=== PATIENT | male | born 1985 | race Caucasian/White ===

== ENCOUNTER → 2019-02-14 08:21 | Outpatient (CLI) | payer OTHER, SELFPAY ==
[2019-02-14 10:50] LABS: Anion Gap 6 (5-15); BUN 15 mg/dL (7-18); BUN/Creat Ratio 15.2 RATIO (10-20); Calcium,Total 8.7 mg/dL (8.5-10.1); Chloride 107 mmol/L (98-107); Cholesterol 171 mg/dL (200); Creatinine, Serum 0.99 mg/dL (0.70-1.30); EST Glomerular Filtration Rate 92 mL/min (>60); Est Glom Filt Rate - Afr Amer 111 mL/min (>60); Glucose 81 mg/dL (74-106); High Density Lipoprotein 50 mg/dL; Sodium Level 141 mmol/L (136-145); Triglycerides 62 mg/dL; Very Low Density Lipoprotein 12 mg/dL (5-40)
== END ==
PROVIDERS: Family Provider Family Medicine; PCP Family Medicine; Visit Provider Nurse Practitioner Family
DX: Z00.00 Encounter for general adult medical examination without abnormal findings (principal)
CPT/HCPCS: 36415; 80048; 80061

== ENCOUNTER → 2019-03-26 08:49 | Outpatient (CLI) | payer OTHER, SELFPAY ==
[2019-03-26 08:40] VITALS: BMI 19.5
--- NOTE | 2019-03-26 08:50 | RAD_ITS ---
STUDY: X-RAY - LEFT WRIST REASON FOR EXAM: Cyst/bump at the anterior base of thumb. TECHNIQUE: 3 view(s) of the wrist were obtained. COMPARISON: None. FINDINGS: Normal visualized distal radius and ulna. Normal radiocarpal articulation. Normal distal radioulnar articulation. Normal carpal bones. Normal carpal articulations. Normal carpometacarpal articulation of the thumb. Normal second through fifth carpometacarpal articulations. Normal visualized metacarpal bones. The soft tissue structures are unremarkable. RAD/Wrist min 3 Views IMPRESSION: Normal x-ray examination of the left wrist. Electronically Signed: Mario Lawson MD at 9:15 EST Tel , Service support ,
== END ==
PROVIDERS: PCP Family Medicine; Referring Provider Orthopaedic Surgery; Visit Provider Orthopaedic Surgery
DX: R22.32 Localized swelling, mass and lump, left upper limb (principal)
CPT/HCPCS: 73110

== ENCOUNTER → 2019-03-29 15:46 | Outpatient (CLI) | payer OTHER, SELFPAY ==
[2019-03-26 08:40] VITALS: BMI 19.5
--- NOTE | 2019-03-29 15:47 | US_ITS ---
STUDY: SUPERFICIAL ULTRASOUND - LEFT WRIST REASON FOR EXAM: Male, 34 years old. LT LAT WRIST LUMP TECHNIQUE: A superficial ultrasound was performed with real-time and static frank-scale imaging. COMPARISON: None. FINDINGS: 2 x 4 mm anechoic cyst approximately 1.1 mm below the skin surface appears to be adjacent to the joint. US/Ext Non Vasc Limited/Soft Tiss IMPRESSION: 2 x 4 mm probable ganglion cyst. No solid masses. Electronically Signed: Nixon Dior MD ([place]) at 13:20 EST , Service support ,
== END ==
PROVIDERS: PCP Family Medicine; Referring Provider Orthopaedic Surgery; Visit Provider Orthopaedic Surgery
DX: R22.32 Localized swelling, mass and lump, left upper limb (principal)
CPT/HCPCS: 76882

== ENCOUNTER → 2019-04-29 10:27 | Outpatient (CLI) | payer OTHER, SELFPAY ==
[2019-03-26 08:40] VITALS: BMI 19.5
--- NOTE | 2019-04-29 10:27 | MRI_ITS ---
STUDY: MRI LEFT WRIST WITHOUT CONTRAST REASON FOR EXAM: Male, 34 years old. Left wrist pain, lump radial/ hess area TECHNIQUE: Standardized fat and water weighted pulse sequences were obtained in all 3 orthogonal planes. COMPARISON: None. FINDINGS: Normal visualized distal radius and ulna. Normal distal radioulnar Articulation (DRUJ). Normal triangular fibrocartilaginous complex (TFCC). Normal carpal bones. Normal radiocarpal, intercarpal and midcarpal articulations. There is a joint effusion of the metacarpal articulation with mild dorsal capsular distention (coronal STIR series 4, is 13; sagittal T2 series 7, image 13). There is a joint effusion of the pisotriquetral articulation with capsular prolapse. Normal visualized interosseous scapholunate ligament. Normal visualized dorsal (extrinsic) ligaments. There is minimal ligamentous hypertrophy with scarring of the radioscaphocapitate extrinsic wrist ligaments arising at its radial origin (sagittal series 7, image 9; coronal STIR series 4, image 8; coronal T1 series 3, image 8). There is no demonstrated solid, cystic, or lipomatous mass in the radial palmar aspect of the wrist. Normal extensor tendons. Normal flexor tendons. Normal carpal tunnel with a normal median nerve. Normal carpometacarpal articulation of the thumb. Normal second through fifth carpometacarpal articulations. Normal visualized metacarpal bones. MRI/Upper Ext Joint Only(Routine) IMPRESSION: 1. No demonstrated solid, cystic or lipomatous mass in the region of the radial palmar aspect of the wrist. 2. Ligamentous hypertrophy with scarring of the origin the radioscaphocapitate extrinsic wrist ligaments at its radial origin. 3. Joint effusion of the midcarpal articulations with dorsal capsular prolapse. 4. Joint effusion of the pisotriquetral articulation with capsular distention. Electronically Signed: Joe Vick DO at 13:31 EDT Tel , Service support ,
== END ==
PROVIDERS: PCP Family Medicine; Referring Provider Orthopaedic Surgery; Visit Provider Orthopaedic Surgery
DX: M67.432 Ganglion, left wrist (principal)
CPT/HCPCS: 73221

== ENCOUNTER → 2023-04-28 | Outpatient (CLI) | payer OTHER, SELFPAY ==
[2023-04-28 10:00] LABS: Absolute Lymphocyte Count 1.11 X10^3/uL (0.83-4.51); Absolute Neutrophil Count 1.5 X10^3/uL (2.0-7.7); Basophil# 0.02 X10^3/uL; Basophil% 0.6 % (0-1); Eosinophil# 0.04 X10^3/uL; Eosinophils% 1.3 % (0-5); Hematocrit 40.9 % (40-54); Hemoglobin 13.6 g/dL (13.0-16.5); Lymphocyte # 1.11 X10^3/ul (0.83-4.51); Lymphocyte % 35.1 % (19-41); Mean Corp Hgb Conc 33.3 g/dL (32-36); Mean Corpuscular Hgb 30.6 pg (27.0-32.0); Mean Corpuscular Volume 91.9 fL (80-94); Mean Platelet Vol. 10.1 fl (6.2-12.0); Monocyte# 0.48 X10^3/uL; Monocyte% 15.2 % (0-10); NRBC Flagged by Analyzer 0 % (0-5); Neutrophil # 1.51 X10^3/uL (2.7-7.7); Neutrophil % 47.8 % (47-70); Platelet Count 175 K/mm3 (150-450); RBC Distribution Width CV 12.5 % (11.6-14.6); RBC Distribution Width SD 42.2 fl (35.1-43.9); Red Blood Count 4.45 M/mm3 (4.6-6.2); White Blood Count 3.2 K/mm3 (4.4-11.0)
[2023-04-28 10:51] LABS: AST(SGOT) 28 U/L (15-37); Alanine Aminotransfer ALT/SGPT 25 U/L (16-61); Alkaline Phosphatase 66 U/L (45-117); Anion Gap 3 (5-15); BUN 16 mg/dL (7-18); BUN/Creat Ratio 15.8 RATIO (10-20); Calcium,Total 9.4 mg/dL (8.5-10.1); Chloride 105 mmol/L (98-107); Cholesterol 184 mg/dL (200); Creatinine, Serum 1.01 mg/dL (0.70-1.30); EST Glomerular Filtration Rate 87 mL/min (>60); Est Glom Filt Rate - Afr Amer 106 mL/min (>60); Globulin 3.9 g/dL (2.2-4.2); Glucose 88 mg/dL (74-106); High Density Lipoprotein 58 mg/dL; Potassium 4.4 mmol/L (3.5-5.1); Protein, Total 7.9 g/dL (6.4-8.2); Sodium Level 139 mmol/L (136-145); Thyroid Stim Hormone (TSH) 1.05 uIU/mL (0.358-3.74); Triglycerides 68 mg/dL; Very Low Density Lipoprotein 14 mg/dL (5-40)
== END | disposition home or self-care (01) ==
LOC: MFPLAB 08:35
PROVIDERS: PCP Family Medicine; Visit Provider Family Medicine
DX: Z00.00 Encounter for general adult medical examination without abnormal findings (principal)
CPT/HCPCS: 36415; 80053; 80061; 84443; 85025

== ENCOUNTER → 2023-05-19 | Outpatient (CLI) | payer OTHER, SELFPAY ==
[2023-05-19 16:04] LABS: AST(SGOT) 23 U/L (15-37); Alanine Aminotransfer ALT/SGPT 27 U/L (16-61); Albumin, Serum 4.2 g/dL (3.2-5.0); Alkaline Phosphatase 67 U/L (45-117); Bilirubin, Direct 0.31 mg/dL (0.00-0.30); Protein, Total 8.2 g/dL (6.4-8.2)
== END | disposition home or self-care (01) ==
LOC: MTLAB 11:25
PROVIDERS: PCP Family Medicine; Referring Provider Family Medicine; Visit Provider Family Medicine
DX: R17 Unspecified jaundice (principal)
CPT/HCPCS: 36415; 80076

== ENCOUNTER → 2024-03-14 | Outpatient (CLI) | payer OTHER, SELFPAY ==
--- NOTE | 2024-03-14 09:42 | RAD_ITS ---
EXAM: XR ABDOMEN, 2 VIEWS AND XR CHEST, 1 VIEW CLINICAL INDICATION: PAIN TECHNIQUE: Frontal view of the chest, frontal view of the abdomen/pelvis and upright or decubitus view of the abdomen. COMPARISON: Chest radiograph, 02/06/2017 FINDINGS: CHEST: LUNGS AND PLEURAL SPACES: No significant abnormality. No consolidation or edema. No pneumothorax. No effusion. HEART: No significant abnormality. Cardiac silhouette not enlarged. MEDIASTINUM: Central airways and mediastinal contour are unremarkable. ABDOMEN: INTRAPERITONEAL SPACE: No free air. GASTROINTESTINAL TRACT: No significant abnormality. Non-obstructive. No bowel or stomach distention. ORGANS: Normal as visualized. No organomegaly. No abnormal calcifications. TUBES, LINES AND DEVICES: None. BONES/JOINTS: Serafina right lumbar spine curvature. SOFT TISSUES: No significant findings. RAD/Acute Abdomen Inc Chest IMPRESSION: 1. No acute pathology in the chest. 2. No acute pathology in the abdomen or pelvis. Electronically Signed: Collin Marcum DO at 20:26 EST ,
[2024-03-14 12:27] LABS: AST(SGOT) 27 U/L (15-37); Alanine Aminotransfer ALT/SGPT 31 U/L (16-61); Albumin, Serum 4.1 g/dL (3.2-5.0); Alkaline Phosphatase 73 U/L (45-117); Anion Gap 4 (5-15); BUN 16 mg/dL (7-18); BUN/Creat Ratio 17.6 RATIO (10-20); Calcium,Total 9.4 mg/dL (8.5-10.1); Chloride 104 mmol/L (98-107); Creatinine, Serum 0.91 mg/dL (0.70-1.30); EST Glomerular Filtration Rate 98 mL/min (>60); Est Glom Filt Rate - Afr Amer 119 mL/min (>60); Globulin 4.2 g/dL (2.2-4.2); Glucose 91 mg/dL (74-106); Lipase 31 U/L (13-75); Potassium 4.1 mmol/L (3.5-5.1); Protein, Total 8.3 g/dL (6.4-8.2); Sodium Level 138 mmol/L (136-145)
[2024-03-14 12:35] LABS: Hematocrit 41.2 % (40-54); Hemoglobin 13.7 g/dL (13.0-16.5); Mean Corp Hgb Conc 33.3 g/dL (32-36); Mean Corpuscular Volume 90.2 fL (80-94); Mean Platelet Vol. 10.2 fl (6.2-12.0); Platelet Count 196 K/mm3 (150-450); RBC Distribution Width CV 12.7 % (11.6-14.6); RBC Distribution Width SD 41.5 fl (35.1-43.9); Red Blood Count 4.57 M/mm3 (4.6-6.2); White Blood Count 3.7 K/mm3 (4.4-11.0)
== END | disposition home or self-care (01) ==
PROVIDERS: PCP Family Medicine
DX: R10.12 Left upper quadrant pain (principal)
CPT/HCPCS: 36415; 74022; 80053; 83690; 85027

== ENCOUNTER 2024-04-29 07:45 | Day surgery (SDC) | payer OTHER, SELFPAY ==
[2024-04-29] VITALS (7 sets, daily range): BP systolic 98–105; BP diastolic 63–84; PULSE 65–87; RESP 14–20; TEMP 36.2–36.7; O2SAT 97–99; BMI 20.3
--- NOTE | 2024-04-29 07:47 | PCM.PRE.AN2 ---
ASA Classification* ASA Classification ASA Classification: 2 Assessment & Plan Anesthesia* Anesthesia Assessment Anesthesia Assessment: Discussed sedation and/or anesthesia options, risks, benefits, and alternatives with patient/parents/legal guardian/POA. Questions invited. The patient/parents/legal guardian/POA seems to understand and agrees to proceed with anesthesia plan. Reviewed the physical assessment, medical history, allergy history and patient home medications list prior to surgery/procedure/anesthetic and documented any changes. Performed airway and anesthesia risk assessments. Anesthesia Type Anesthesia Type: MAC Anesthesia Focused Assessment* Airway Assessment Mouth opens: >3 cm Mallampati Score: II Focused Labs Anesthesia Preop lab: CBC WBC 3.7 K/mm3 (4.4-11.0) L 03/14/24 09:48 03/14/24 RBC 4.57 M/mm3 (4.6-6.2) L 03/14/24 09:48 03/14/24 Hgb 13.7 g/dL (13.0-16.5) 03/14/24 09:48 03/14/24 Hct 41.2 % (40-54) 03/14/24 09:48 03/14/24 Plt Count 196 K/mm3 (150-450) 03/14/24 09:48 03/14/24 CHEMISTRY Potassium 4.1 mmol/L (3.5-5.1) 03/14/24 09:48 03/14/24 Sodium 138 mmol/L (136-145) 03/14/24 09:48 03/14/24 BUN 16 mg/dL (7-18) 03/14/24 09:48 03/14/24 Creatinine 0.91 mg/dL (0.70-1.30) 03/14/24 09:48 03/14/24 Glucose 91 mg/dL (74-106) 03/14/24 09:48 03/14/24 TSH 1.05 uIU/mL (0.358-3.74) 04/28/23 08:36 04/28/23 COAG Pre-Assessment Diagnosis/Proposed Procedure Planned Operative Procedure(s): COLONOSCOPY Anesthesia History 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 When Was Last Pacemaker Check QUESTION #4 FULL TEXT: You/Your Family Experience fever (hyperthermia) with Anesthesia Last Oral Intake Last Oral intake: Last Oral Intake NPO since Meds taken in AM with sips of water? Meds patient instructed to take am of surgery PONV PONV - wax ball knock out worker: PONV - wax ball knock out worker Female No 04/26/24 11:36 HX of Motion Sickness No 04/26/24 11:36 HX of N/V After Surgery No 04/26/24 11:36 Non-Smoker Yes 04/26/24 11:36 Duration of Surgery greater No 04/26/24 11:36 than 60 minutes Number of Risk Factors 1 04/26/24 11:36 PONV Score Low Risk 04/26/24 11:36 Height & Weight Height & Weight: Anesthesia: Height & Weight Height 6 ft 1 in 03/26/19 08:40 Respiratory Assessment Respiratory Assessment - wax ball knock out worker: Respiratory Tract Infection Hx - wax ball knock out worker Hx Respiratory Tract Infection No 04/26/24 11:36 STOP Sleep Apnea STOP Sleep Apnea - wax ball knock out worker: STOP Sleep Apnea - wax ball knock out worker Hx Hypertension No 04/26/24 11:36 Hx Sleep Apnea No 04/26/24 11:36 CPAP BIPAP Do you snore loudly (louder No 04/26/24 11:36 than talking or can be heard Do you often feel tired/ No 04/26/24 11:36 fatigued/ sleepy during daytime? Has anyone observed you stop No 04/26/24 11:36 breathing during sleep? STOP Results Negative 04/26/24 11:36 QUESTION #5 FULL TEXT : Do you snore loudly (louder than talking or can be heard through closed doors)? 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 Specify any problems Hx of Preganancy in last 3 N/A 04/26/24 11:36 Months Nurse Filling Out Transfusion [facility] 04/26/24 11:36 & Questions: Date: 04/26/24 04/26/24 11:36 Time: 11:41 04/26/24 11:36 Patient unable to answer at this time (ie. confused, unrespo /Reproduction History /Reproductive History - wax ball knock out worker: /Reproductive Hx- wax ball knock out worker Hx Now Gestational Age (in weeks): EDC: Hx Hx Para Hx Section SAB PFSH Medical History Alcohol use Gastric reflux Non-smoker Home Medications ?Medication ?Instructions ?Recorded ?Last Taken ?Type finasteride 1 mg tablet 1 mg PO DAILY 04/26/24 Unknown History omeprazole 40 mg capsule,delayed 40 mg PO DAILY 04/26/24 Unknown History release Allergy/AdvReac Type Severity Reaction Status Date / Time No Known Allergies Allergy Verified 04/26/24 11:33 Surgical History History of arthroplasty of knee Social History Smoking Status: Never smoker Review of Systems (Anesthesia) ROS Narrative System reviewed and no additional complaints, except as documented.
--- NOTE | 2024-04-29 08:27 | PCM.HP.STD ---
[facility] - General General Date of Admission: 04/29/24 Date of Service: 04/29/24 Chief Complaint: Family history of colon cancer HPI Narrative OMKAR ESTRELLA, is a 39 M who presents for colonoscopy due to his father having colon cancer. Pt has a family hx of colon cancer in his father. Pt father was found to have adenocarcinoma of the colon at age 56. He underwent colon resection and has been doing well since. Pt had a brief time frame at the beginning of 2023 with abd pain in the LUQ. He had a CT abd pelvis which did not show abnormalities. No etiology was found and the pain resolved. His brother who is two years younger has had a colonoscopy with polyps. He would like to undergo colonoscopy at this time. [facility] Medical History Alcohol use Gastric reflux Non-smoker Home Medications ?Medication ?Instructions ?Recorded ?Last Taken ?Type finasteride 1 mg tablet 1 mg PO DAILY 04/26/24 Unknown History omeprazole 40 mg capsule,delayed 40 mg PO DAILY 04/26/24 Unknown History release Allergy/AdvReac Type Severity Reaction Status Date / Time No Known Allergies Allergy Verified 04/29/24 07:59 Surgical History History of arthroplasty of knee Social History Smoking Status: Never smoker ROS Constitutional Constitutional: Denies fatigue, fever(s), poor appetite, weight gain or weight loss Gastrointestinal Gastrointestinal: Denies belching, bloating, change in bowel habits, change in stool character, chewing difficulty, coffee ground emesis, constipation, cramping, diarrhea, dyspepsia, dysphagia, early satiety, excessive flatus, fecal incontinence, heartburn, hematemesis, hematochezia, hemorrhoids, loose stools, melena, nausea, odynophagia, rectal bleeding, tenesmus, vomiting or weight changes Vital Signs Vital Signs Vital Signs: 04/29/24 08:00 04/29/24 08:00 Temperature 97.1 F L Temperature Source Temporal Pulse Rate 87 Respiratory Rate 14 Respiratory Pattern Normal Blood Pressure 105/84 H Blood Pressure Mean 91 Blood Pressure Source Monitor Blood Pressure Position Sitting Blood Pressure Location Left Arm Pulse Ox 99 Oxygen Delivery Method Room Air Weight Weight: 154 lb 5.177 oz Body Mass Index (BMI) 20.3 Physical Exam Const alert, oriented x3, no apparent distress and healthy appearing General Appearance: cooperative GI normal to inspection, nondistended, normoactive bowel sounds, soft to palpation, non-tender and non-distended Percussion: normal to percussion Rectal Exam: deferred Assessment & Plan Assessment/Plan (1) Family hx of colon cancer: PLAN: Assessment and Plan Assessment and Plan (1) Family hx of colon cancer: Status: Acute Plan: This is a 39 yo male pt here today for family hx of colon cancer. Pt father was diagnosed with colon cancer at age 56 and underwent resection. In early 2023 pt was having LUQ abd pain that eventually resolved with no etiology found. His younger brother has also had polyps. Given this information, he would like to undergo colonoscopy for surveillance at this time. He will be scheduled for a colonoscopy. I did inform him that recommendation for screening starts 10 years prior to the family members cancer diagnosis but given his hx of abd pain -Colonoscopy -f/u as needed
--- NOTE | 2024-04-29 09:18 | OP.CCLET_ITS ---
04/29/2024 Eulalio Campa [address] [place] [address] Re : Colonoscopy procedure for Bill Valdes Dear Dr. Campa This procedure was performed on Monday, April 29, 2024. My impressions and recommendations are as follows: Impressions : - The entire examined colon is normal. - No specimens collected. Recommendations : - Discharge patient to home. - Resume previous diet. - Continue present medications. - Repeat colonoscopy in 5 years for screening purposes. My findings are described in the full procedure note, which is enclosed. If I can be of further assistance, please feel free to contact me at . Sincerely, Moi Day, 04/29/2024 9:18:01 AM This report has been signed electronically.
--- NOTE | 2024-04-29 09:18 | OP.COLON_ITS ---
Patient Name: Bill Valdes Procedure Date: 04/29/2024 8:53 AM Date of : 1985 Age: 39 Procedure: Colonoscopy Indications: Screening for colorectal malignant neoplasm Providers: Moi Day DO Medicines: Monitored Anesthesia Care Patient Profile: This is a 39 year old male. Refer to note in patient chart for documentation of history and physical. Last Colonoscopy: none. The patient's first colonoscopy is today. Complications: No immediate complications. Procedure: Pre-Anesthesia Assessment: - Prior to the procedure, a History and Physical was performed, and patient medications and allergies were reviewed. The patient is competent. The risks and benefits of the procedure and the sedation options and risks were discussed with the patient. All questions were answered and informed consent was obtained. Patient identification and proposed procedure were verified by the physician in the pre-procedure area. Mental Status Examination: alert and oriented. Airway Examination: normal oropharyngeal airway and neck mobility. Respiratory Examination: clear to auscultation. CV Examination: normal. Prophylactic Antibiotics: The patient does not require prophylactic antibiotics. Prior Anticoagulants: The patient has taken no anticoagulant or antiplatelet agents except for NSAID medication. ASA Grade Assessment: II - A patient with mild systemic disease. After reviewing the risks and benefits, the patient was deemed in satisfactory condition to undergo the procedure. The anesthesia plan was to use monitored anesthesia care (MAC). Immediately prior to administration of medications, the patient was re-assessed for adequacy to receive sedatives. The heart rate, respiratory rate, oxygen saturations, blood pressure, adequacy of pulmonary ventilation, and response to care were monitored throughout the procedure. The physical status of the patient was re-assessed after the procedure. After I obtained informed consent, the scope was passed under direct vision. Throughout the procedure, the patient's blood pressure, pulse, and oxygen saturations were monitored continuously. The colonoscope was introduced through the anus and advanced to the cecum, identified by appendiceal orifice and ileocecal valve. The colonoscopy was performed without difficulty. The patient tolerated the procedure well. The quality of the bowel preparation was adequate. The ileocecal valve, appendiceal orifice, and rectum were photographed. Scope In: 8:59:20 AM Scope Withdrawal Time 0 hours 7 minutes 25 seconds Scope Out: 9:12:33 AM Total Procedure Duration Time 0 hours 13 minutes 13 seconds Findings: The perianal and digital rectal examinations were normal. The colon (entire examined portion) appeared normal. Impression: - The entire examined colon is normal. - No specimens collected. Recommendation: - Discharge patient to home. - Resume previous diet. - Continue present medications. - Repeat colonoscopy in 5 years for screening purposes. Procedure Code(s): --- Professional --- G0121, Colorectal cancer screening; colonoscopy on individual not meeting criteria for high risk CPT copyright 2021 [employer]. All rights reserved. The codes documented in this report are preliminary and upon hand molder meat review may be revised to meet current compliance requirements. Moi Day DO 04/29/2024 9:18:01 AM This report has been signed electronically. Number of Addenda: 0 Note Initiated On: 04/29/2024 8:53 AM
--- NOTE | 2024-04-29 09:18 | PCM.POST.ANE ---
Anesthesia: Postop Eval I Current Vital Signs Temperature: 97.2 F Pulse Rate: 78 Blood Pressure: 101/72 Respiratory Rate: 20 Pulse Ox: 98 Assessment Airway patent: Yes Spontaneous unlabored respirations: Yes nausea: No Vomiting: No Anesthesia Complication: No Fluid Hydration Crystalloid volume administer (ml): 10 Total IV fluid infused: 10 Progress Note Anesthesia document: Postop Eval 1 completed: Yes
--- NOTE | 2024-04-29 09:27 | POSTOPAN2_ITS ---
Anesthesia Postop Eval I Sum Postop Eval Completion status Anesthesia document: Postop Eval 1 completed: Yes Anesthesia Postop Eval I Summary Anesthesia Postop Eval I Summary: Anesthesia Postop Eval I: Assessment Summary Airway patent Yes 04/29/24 09:18 JEWEL BEARING TURNER.[email or web address] Spontaneous unlabored Yes 04/29/24 09:18 JEWEL BEARING TURNER.CSIR respirations Mental status nausea No 04/29/24 09:18 JEWEL BEARING TURNER.CSIR Vomiting No 04/29/24 09:18 JEWEL BEARING TURNER.CSIR Anesthesia Postop Eval I: Fluid Summary Crystalloid volume administer 10 04/29/24 09:18 JEWEL BEARING TURNER.CSIR (ml) Colloids volume administered ( ml) Blood Product volume administered (ml) Total IV fluid infused 10 04/29/24 09:18 JEWEL BEARING TURNER.CSIR Anesthesia Postop Eval I: Summary Notes Anesthesia Complication No 04/29/24 09:18 JEWEL BEARING TURNER.CSIR Anesthesia Complication Comment: Post-operative progress note Anesthesia: Postop Eval II Evaluation Mental status: Awake Pain Level: 0 nausea: No Vomiting: No
--- NOTE | 2024-04-29 09:27 | PCM.POSTANE2 ---
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 DRAFTSPERSON.CSIR Spontaneous unlabored Yes 04/29/24 09:18 ARCHITECTURAL DRAFTSPERSON.CSIR respirations Mental status nausea No 04/29/24 09:18 ARCHITECTURAL DRAFTSPERSON.CSIR Vomiting No 04/29/24 09:18 ARCHITECTURAL DRAFTSPERSON.CSIR Anesthesia Postop Eval I: Fluid Summary Crystalloid volume administer 10 04/29/24 09:18 ARCHITECTURAL DRAFTSPERSON.CSIR (ml) Colloids volume administered ( ml) Blood Product volume administered (ml) Total IV fluid infused 10 04/29/24 09:18 ARCHITECTURAL DRAFTSPERSON.CSIR Anesthesia Postop Eval I: Summary Notes Anesthesia Complication No 04/29/24 09:18 ARCHITECTURAL DRAFTSPERSON.CSIR Anesthesia Complication Comment: Post-operative progress note Anesthesia: Postop Eval II Evaluation Mental status: Awake Pain Level: 0 nausea: No Vomiting: No
== END 2024-04-29 09:54 | disposition home or self-care (01) ==
LOC: EN 07:47 → AC 07:48
PROVIDERS: PCP Family Medicine; Referring Provider Family Medicine; Visit Provider Internal Medicine Gastroenterology
PROC: 0DJD8ZZ Inspection of Lower Intestinal Tract, Via Natural or Artificial Opening Endoscopic (ICD-10-PCS; CPT 45378; principal; 2024-04-29 08:40)
DX: Z12.11 Encounter for screening for malignant neoplasm of colon (principal); K21.9 Gastro-esophageal reflux disease without esophagitis; Z80.0 Family history of malignant neoplasm of digestive organs
CPT/HCPCS: 45378; A4216; J2405